=== PATIENT | female | born 1980 | race Caucasian/White ===

== ENCOUNTER 2017-11-16 12:35 | Emergency (ER) | payer BC ==
[~2017-11-16] VITALS: Ht 152.4 cm; Wt 63.2 kg
[~2017-11-16 12:35] MED LIST: CELE40TA PO; PERC10TA27 PO; RIVA15 PO; TEMA15 PO
[2017-11-16 12:42] VITALS: BP 152/71; PULSE 101; RESP 16; TEMP 98.4; O2SAT 99
[2017-11-16] MEDS ORDERED: REST30CA PO (13:34)
[2017-11-16] MEDS ORDERED: PHEN-556 PO (13:34)
[2017-11-16 13:38] LABS: BILIRUBIN, URINE NEG (NEG); BLOOD, URINE NEG (NEG); GLUCOSE,URINE NEG (NEG); KETONE, URINE NEG (NEG); NITRITE,URINE NEG (NEG); URINE LEUKOCYTE ESTERASE NEG (NEG)
[2017-11-16 13:45] LABS: URINE COLOR STRAW (YELLW/STRAW)
[2017-11-16] MEDS ORDERED: SODIUM CHLORIDE 0.9% FLUSH 10 ML FLUSH IV FLUSH PRN (13:45)
[2017-11-16 13:46] LABS: AMORPHOUS SEDIMENT, URINE FEW; SQUAMOUS EPITHELIAL CELL URINE 0-5 /hpf (0-5)
--- NOTE | 2017-11-16 13:46 | PD ---
HPI Chief Complaint: Abdominal Pain Time Seen by Provider: 13:39 Travel History International Travel<30 days: No Contact w/Intl Traveler<30days: No Traveled to known affect area: No History of Present Illness HPI The patient was seen and examined in the presence of the nurse. This patient complains of having a spell at home where she was dizzy and lightheaded and diaphoretic and nauseous. It lasted 30 seconds and resolved. She did not have any chest pain or syncope. No headache. Afterwards she had some epigastric discomfort. Symptoms severity is moderate. Duration one hour. No alleviating factors. No exacerbating factors. PFSH Past Medical History Depression: Yes High Cholesterol: Yes Gastrointestinal Disorders: Yes (gastritis ) Kidney Stones: Yes Reproductive: Yes (fibroids) Migraines: Yes Tetanus Vaccination: < 5 Years Influenza Vaccination: Yes ?: Not Past Surgical History Hysterectomy: Yes Social History Alcohol Use: Yes (occass) Tobacco Use: Yes (10/01-1 PPD) Substance Use: No Allergies-Medications (Allergen,Severity, Reaction): Coded Allergies: No Known Allergies (Unverified Adverse Reaction, Unknown, 11/16/17) Reported Meds & Prescriptions Reported Meds & Active Scripts Active Reported Lomaira (Phentermine HCl) 8 Mg Tab 37.5 Mg PO DAILY Restoril (Temazepam) 30 Mg Cap 30 Mg PO HS PRN Review of Systems General / Constitutional: No: Fever Eyes: No: Visual changes HENT: Positive: Lightheadedness, No: Headaches Cardiovascular: Positive: Diaphoresis, No: Chest Pain or Discomfort Respiratory: No: Shortness of Breath Gastrointestinal: Positive: Nausea, Abdominal Pain Genitourinary: No: Dysuria Musculoskeletal: No: Pain Skin: No Rash Neurologic: No: Weakness Psychiatric: No: Depression Endocrine: No: Polydipsia Hematologic/Lymphatic: No: Easy Bruising Physical Exam Narrative GENERAL: Well-nourished, well-developed patient in no apparent distress. SKIN: Focused skin assessment reveals no rash and nodules. Skin is Warm and dry. HEAD: Atraumatic. Normocephalic. EYES: Pupils equal and round. No scleral icterus. No injection or drainage. ENT: No nasal bleeding or discharge. Mucous membranes pink and moist. NECK: Trachea midline. No JVD. CARDIOVASCULAR: Regular rate and rhythm. No murmur appreciated. RESPIRATORY: No accessory muscle use. Clear to auscultation. Breath sounds equal bilaterally. GASTROINTESTINAL: Abdomen soft, non-tender, nondistended. Hepatic and splenic margins not palpable. MUSCULOSKELETAL: No obvious deformities. No clubbing. No cyanosis. No edema. NEUROLOGICAL: Awake and alert. No obvious cranial nerve deficits. Motor grossly within normal limits. Normal speech. PSYCHIATRIC: Appropriate mood and affect; insight and judgment normal. Data Data Last Documented VS Vital Signs Date Time Temp Pulse Resp B/P (MAP) Pulse Ox O2 Delivery O2 Flow Rate FiO2 11/16/17 14:43 87 17 118/59 (78) 98 Room Air 11/16/17 12:42 98.4 Orders Orders Urinalysis - C+S If Indicated (11/16/17 13:06) Complete Blood Count With Diff (11/16/17 13:43) Comprehensive Metabolic Panel (11/16/17 13:43) Lipase (11/16/17 13:43) Iv Access Insert/Monitor (11/16/17 13:43) Ecg Monitoring (11/16/17 13:43) Sodium Chloride 0.9% Flush (Ns Flush) (11/16/17 13:45) Electrocardiogram (11/16/17 ) Labs Laboratory Tests Test 11/16/17 13:20 11/16/17 13:55 Urine Collection Type CLEAN CATCH Urine Color STRAW Urine Turbidity CLEAR Urine pH 6.0 Urine Specific [place] 1.003 Urine Protein NEG mg/dL Urine Glucose (UA) NEG mg/dL Urine Ketones NEG mg/dL Urine Occult Blood NEG Urine Nitrite NEG Urine Bilirubin NEG Urine Leukocyte Esterase NEG Urine Squamous Epithelial Cells 0-5 /hpf Urine Amorphous Sediment FEW Microscopic Urinalysis Comment CULT NOT INDICATED Urine Collection Time 1320 White Blood Count 9.0 TH/MM3 Red Blood Count 5.01 MIL/MM3 Hemoglobin 15.1 GM/DL Hematocrit 45.4 % Mean Corpuscular Volume 90.6 FL Mean Corpuscular Hemoglobin 30.2 PG Mean Corpuscular Hemoglobin Concent 33.3 % Red Cell Distribution Width 11.9 % Platelet Count 259 TH/MM3 Mean Platelet Volume 6.3 FL Neutrophils (%) (Auto) 72.7 % Lymphocytes (%) (Auto) 22.5 % Monocytes (%) (Auto) 3.5 % Eosinophils (%) (Auto) 0.7 % Basophils (%) (Auto) 0.6 % Neutrophils # (Auto) 6.5 TH/MM3 Lymphocytes # (Auto) 2.0 TH/MM3 Monocytes # (Auto) 0.3 TH/MM3 Eosinophils # (Auto) 0.1 TH/MM3 Basophils # (Auto) 0.1 TH/MM3 CBC Comment DIFF FINAL Differential Comment Blood Urea Nitrogen 6 MG/DL Creatinine 0.55 MG/DL Random Glucose 91 MG/DL Total Protein 7.3 GM/DL Albumin 3.7 GM/DL Calcium Level 8.8 MG/DL Alkaline Phosphatase 50 U/L Aspartate Amino Transf (AST/SGOT) 13 U/L Alanine Aminotransferase (ALT/SGPT) 17 U/L Total Bilirubin 0.4 MG/DL Sodium Level 140 MEQ/L Potassium Level 3.9 MEQ/L Chloride Level 106 MEQ/L Carbon Dioxide Level 27.9 MEQ/L Anion Gap 6 MEQ/L Estimat Glomerular Filtration Rate 123 ML/MIN Lipase 92 U/L MDM Medical Decision Making Medical Screen Exam Complete: Yes Emergency Medical Condition: Yes Medical Record Reviewed: Yes Differential Diagnosis Differential diagnosis includes pancreatitis, biliary colic, hepatitis, GERD, peptic ulcer disease. Narrative Course I have reviewed the patient's electronic medical record. IV placed I reviewed all her labs which are normal I reviewed her EKG which is normal Likely had a vasovagal episode. Stable for outpatient follow-up Diagnosis Primary Impression: Vasovagal episode Additional Impression: Epigastric pain Additional Instructions: The patient was advised to follow up with their physician and return if they worsen. Med/Other Pt SpecificInfo: Other Disposition: 01 DISCHARGE HOME Condition: Stable Dar Steele MD Nov 16, 2017 13:46
[2017-11-16 14:00] LABS: AUTOMATED NEUTROPHIL # 6.5 TH/MM3 (1.8-7.7); BASOPHIL # 0.1 TH/MM3 (0-0.2); BASOPHIL % 0.6 % (0.0-2.0); EOSINOPHIL # 0.1 TH/MM3 (0-0.4); EOSINOPHIL % 0.7 % (0.0-4.0); HEMATOCRIT 45.4 % (35.0-46.0); HEMOGLOBIN 15.1 GM/DL (11.6-15.3); LYMPH % 22.5 % (9.0-44.0); MEAN CELL VOLUME 90.6 FL (80.0-100.0); MEAN CORPUSCULAR HEMOGLOBIN 30.2 PG (27.0-34.0); MEAN CORPUSCULAR HGB CONC 33.3 % (32.0-36.0); MEAN PLATELET VOLUME 6.3 FL (7.0-11.0); MONO % 3.5 % (0.0-8.0); MONOCYTE # 0.3 TH/MM3 (0-0.9); NEUT % 72.7 % (16.0-70.0); PLATELET COUNT 259 TH/MM3 (150-450); RED BLOOD COUNT 5.01 MIL/MM3 (4.00-5.30); RED CELL DISTRIBUTION WIDTH 11.9 % (11.6-17.2)
[2017-11-16 14:09] LABS: CHLORIDE 106 MEQ/L (98-107); SODIUM (NA) 140 MEQ/L (136-145)
[2017-11-16 14:12] LABS: CALCIUM 8.8 MG/DL (8.5-10.1)
[2017-11-16 14:13] LABS: ALBUMIN 3.7 GM/DL (3.4-5.0); BICARBONATE 27.9 MEQ/L (21.0-32.0); BLOOD UREA NITROGEN 6 MG/DL (7-18); GLUCOSE,RANDOM 91 MG/DL (74-106)
[2017-11-16 14:16] LABS: ALT (GPT) 17 U/L (10-53); AST (GOT) 13 U/L (15-37); CREATININE 0.55 MG/DL (0.50-1.00); GLOMERULAR FILTRATION RATE 123 ML/MIN (>89)
[2017-11-16 14:17] LABS: TOTAL BILIRUBIN ADULT 0.4 MG/DL (0.2-1.0); TOTAL PROTEIN 7.3 GM/DL (6.4-8.2)
[2017-11-16 14:18] LABS: ALKALINE PHOSPHATASE 50 U/L (45-117)
[2017-11-16 14:43] VITALS: BP 118/59; PULSE 87; RESP 17; O2SAT 98
--- NOTE | 2017-11-17 16:01 | EKG ---
Date Performed: 11/16/2017 Time Performed: 13:57:58 PTAGE: 37 years EKG: Sinus rhythm NONSPECIFIC T-WAVE ABNORMALITY BORDERLINE ECG Consider anterior ischemia NO PREVIOUS TRACING DOCTOR: Herve Strange Interpretating Date/Time 11/17/2017 15:59:16
== END 2017-11-16 15:21 | disposition home or self-care (01) ==
LOC: PHED 12:35
DX: R10.13 Epigastric pain (principal); F32.9 Major depressive disorder, single episode, unspecified; E78.00 Pure hypercholesterolemia, unspecified; F17.200 Nicotine dependence, unspecified, uncomplicated
CPT/HCPCS: 80053; 81001; 83690; 85025; 93005; 99284